=== PATIENT | female | born 1955 | race Caucasian/White ===

== ENCOUNTER → 2017-08-04 | Outpatient (CLI) | payer BC ==
--- NOTE | 2017-08-04 11:45 | REP ---
MR CERVICAL SPINE WITHOUT CONTRAST: HISTORY: Neck pain. Facet hypertrophy is present on the left at the C2-3 level. This produces mild narrowing of the left C2 neural foramen. The right C2 neural foramen is patent. Bilateral uncinate process and left facet hypertrophy are present at the C3-4 level. These findings produce mild and moderate narrowing of the right and left C3 neural foramina, respectively. A small central disc protrusion is present at the C4-5 level. There is minimal effacement of the thecal sac without spinal cord compression. Bilateral facet hypertrophy is present. This produces mild and minimal narrowing of the right and left C4 neural foramina, respectively . A disc bulge and small central disc protrusion with associate osteophyte formation are present at the C5-6 level. There is mild effacement of the thecal sac without spinal cord compression. Bilateral uncinate process hypertrophy is present. This produces moderate and mild narrowing of the right and left C5 neural foramina, respectively. A disc bulge with associate osteophyte formation is present at the C6-7 level. There is moderate effacement of the thecal sac without spinal cord compression. Bilateral uncinate process hypertrophy is present. This produces minimal narrowing of the C6 neural foramina. There is no other disc bulge or herniation. The remaining neural foramina are patent. The spinal cord is normal in signal intensity. The C5-6 and C6-7 intervertebral discs are decreased in height, consistent with disc degeneration. Normal signal intensity is present in the cervical vertebral bodies. A hemangioma is present in the T1 vertebral body. IMPRESSION: There is cervical spondylosis at the C2-3 through C6-7 levels without spinal cord compression. Signed by Nikita Torres MD 08/04/2017 11:49 A
== END ==
LOC: M RAD 09:26
PROVIDERS: ATTEND Internal Medicine
DX: M47.892 Other spondylosis, cervical region (principal); M54.12 Radiculopathy, cervical region